=== PATIENT | female | born 1965 | race Caucasian/White ===

== ENCOUNTER 2016-11-27 00:59 | Emergency (ER) | payer OTHER | END 2016-11-27 03:00 | disposition left against medical advice (07) | LOC: ER1 00:59 | DX: R25.1 Tremor, unspecified (principal); F17.210 Nicotine dependence, cigarettes, uncomplicated; Z79.82 Long term (current) use of aspirin | CPT/HCPCS: 99284 ==

== ENCOUNTER 2017-02-17 21:29 | Emergency (ER) | payer OTHER | END 2017-02-18 11:03 | disposition home or self-care (01) | LOC: ER1 21:29 | DX: G40.909 Epilepsy, unspecified, not intractable, without status epilepticus (principal) | CPT/HCPCS: 80307; 81001; 82962; 84703; 99285 ==